=== PATIENT | female | born 1980 | race Two or more races ===

== ENCOUNTER 2019-08-22 20:27 | Emergency (ER) | payer BC ==
[~2019-08-22 20:27] MED LIST: LEVO1TAB8 PO
[2019-08-22 20:39] VITALS: BP 113/67
[2019-08-22] MEDS ORDERED: IBUP800T19 PO (20:49)
[2019-08-22] MEDS ORDERED: KETOROLAC 30 MG/ML VIAL. ONE (21:00)
[2019-08-22] MEDS ORDERED: KETOROLAC 60 MG/2 ML VIAL. IM ONE (21:00)
--- NOTE | 2019-08-22 21:23 | PHYS DOC ---
Past History Past Medical History: No Pertinent History Past Surgical History: No Surgical History Alcohol Use: None Drug Use: None Adult General Chief Complaint Chief Complaint: SORE THROAT HPI HPI Patient is a 39-year-old female presenting with sore throat she got penicillin and steroids from Dr. Durham today but didn't take the steroids yet because she was told it might cause insomnia pain is increasing took an Aleve earlier in the day but can only take one due to alleged sedative effect that she tells me about there is a sleep aid and with it she had negative strep test Review of Systems Review of Systems Constitutional: Denies fever or chills [] Eyes: Denies change in visual acuity, redness, or eye pain [] HENT: Denies nasal congestion or sore throat [] Respiratory: Denies cough or shortness of breath [] Cardiovascular: No additional information not addressed in HPI [] GI: Denies abdominal pain, nausea, vomiting, bloody stools or diarrhea [] : Denies dysuria or hematuria [] Musculoskeletal: Denies back pain or joint pain [] Integument: Denies rash or skin lesions [] Neurologic: Denies headache, focal weakness or sensory changes [] Endocrine: Denies polyuria or polydipsia [] All other systems were reviewed and found to be within normal limits, except as documented in this note. Current Medications Current Medications Current Medications Medications (Trade) Dose Ordered Sig/Getachew Start Time Stop Time Status Last Admin Dose Admin Ketorolac Tromethamine (Toradol 30mg Vial) 30 mg STK-MED ONCE 08/22/19 21:00 08/22/19 21:00 DC Ketorolac Tromethamine (Toradol Im) 30 mg 1X ONCE 08/22/19 21:00 08/22/19 21:04 DC Allergies Allergies Allergies Coded Allergies Type Severity Reaction Last Updated Verified No Known Drug Allergies 05/17/15 No Physical Exam Physical Exam Constitutional: Well developed, well nourished, no acute distress, non-toxic appearance. [] HENT: Normocephalic, atraumatic, bilateral external ears normal exudate are noted bilaterally the uvula is in the midline there is no asymmetric edema Eyes: PERRLA, EOMI, conjunctiva normal, no discharge. [] Neck: Normal range of motion, no tenderness, supple, no stridor. [] Lymphadenopathy is noted Abdomen: Bowel sounds normal, soft, no tenderness, no masses, no pulsatile masses. [] Skin: Warm, dry, no erythema, no rash. [] Back: No tenderness, no CVA tenderness. [] Extremities: No tenderness, no cyanosis, no clubbing, ROM intact, no edema. [] Neurologic: Alert and oriented X 3, normal motor function, normal sensory function, no focal deficits noted. [] Psychologic: Affect normal, judgement normal, mood normal. [] Current Patient Data Vital Signs Vital Signs Date Time Temp Pulse Resp B/P (MAP) Pulse Ox O2 Delivery O2 Flow Rate FiO2 08/22/19 20:39 99.3 106 18 94 Room Air None Temperature (Fahrenheit): * 99.3 degrees F (97.6-99.5) Patient Temperature * 99.3 degrees F (97.5-99.5) Temperature Source * Oral Blood Pressure Systolic * 113 mm Hg (100-140) Blood Pressure Diastolic * 67 mm Hg (60-100) Blood Pressure Mean * 82 mm Hg Pulse Rate * 106 beats per minute (60-90) H Respiratory Rate * 18 breaths per minute (12-24) Oxygen Delivery Method * Room Air Bedside Pulse Oximetry * 94 % Treatment Prior to Arrival * Yes EKG EKG [] Radiology/Procedures Radiology/Procedures [] Course & Med Decision Making Course & Med Decision Making Pertinent Labs and Imaging studies reviewed. (See chart for details) []Symptom management for presumed clinical strep pharyngitis was given Toradol and a prescription for Motrin is discussed patient voiced understanding no signs of peritonsillar abscess Dragon Disclaimer Dragon Disclaimer This electronic medical record was generated, in whole or in part, using a voice recognition dictation system. Departure Departure: Impression: Primary Impression: Sore throat Disposition: HOME, SELF-CARE Condition: STABLE Patient Instructions: Sore Throat, [id number] Scripts Ibuprofen (IBUPROFEN) 800 Mg Tablet 1 TAB PO TID PRN for PAIN, #15 TAB Prov: TOMMY DUQUE MD 08/22/19 TOMMY DUQUE MD Aug 22, 2019 21:23
== END 2019-08-22 21:02 | disposition home or self-care (01) ==
LOC: ER 20:27
DX: J02.9 Acute pharyngitis, unspecified (principal)
CPT/HCPCS: 99282

== ENCOUNTER 2020-05-12 23:03 | Emergency (ER) | payer BC ==
[~2020-05-12] VITALS: Ht 172.7 cm; Wt 75.9 kg
[~2020-05-12 23:03] MED LIST changes: +IBUP800T19 PO
[2020-05-12 23:10] VITALS: BP 118/73
[2020-05-12] MEDS ORDERED: CYCL-331 PO (23:34)
[2020-05-12] MEDS ORDERED: ACET500T33 PO (23:34)
--- NOTE | 2020-05-12 23:42 | PHYS DOC ---
Past History Past Medical History: No Pertinent History Past Surgical History: No Surgical History Alcohol Use: None Drug Use: None General Adult EDM: Chief Complaint: MULTIPLE COMPLAINTS HPI: HPI: "My neck is killing me.. it started about two... days ago..and it will not let up...".. "I was in Dr. Vazquez's office and they started me on some Flexeril but is not helping at all..." Patient is a 40 year old male who presents with above hx and complaints of torticollis after sleeping wrong 2 days ago. Since that time her neck pain has grown increasingly severe and spasms running in to the trapezius and down left arm. Patient denies any trauma. Patient denies any history of fever or chills. Patient denies previous issues of cardiac or musculoskeletal pain. Pain has obvious trapezius spasm. Does have sensation in left deltoid. Distal neurovascular is equal in both hands. Sensation is equal in both hands. Patient is right-hand dominant. No history immunosuppression. No history of IV drug use. Normally follows with Dr. Vazquez, Review of Systems: Review of Systems: Constitutional: Denies fever or chills Eyes: Denies change in visual acuity HENT: Denies nasal congestion or sore throat. Pains complains of severe neck spasm more on the left Respiratory: Denies cough or shortness of breath Cardiovascular: Denies chest pain or edema GI: Denies abdominal pain, nausea, vomiting, bloody stools or diarrhea : Denies dysuria Musculoskeletal: Denies back pain or joint pain Integument: Denies rash Neurologic: Denies headache, focal weakness or sensory changes Endocrine: Denies polyuria or polydipsia Lymphatic: Denies swollen glands Psychiatric: Denies depression or anxiety Heart Score: Risk Factors: Risk Factors: DM, Current or recent (<one month) smoker, HTN, HLP, family history of CAD, obesity. Risk Scores: Score 0 - 3: 2.5% MACE over next 6 weeks - Discharge Home Score 4 - 6: 20.3% MACE over next 6 weeks - Admit for Clinical Observation Score 7 - 10: 72.7% MACE over next 6 weeks - Early Invasive Strategies Family History: Family History: Noncontributory to presentation Current Medications: Current Meds: See nursing for home meds Allergies: Allergies: Allergies Coded Allergies Type Severity Reaction Last Updated Verified No Known Drug Allergies 7/11/20 No Physical Exam: PE: Constitutional: Well developed, well nourished, in acute distress, non-toxic appearance. [] HENT: Normocephalic, atraumatic, bilateral external ears normal, oropharynx moist, no oral exudates, nose normal. [] Eyes: PERRLA, EOMI, conjunctiva normal, no discharge. Glasses Neck: Admitted range of motion due to severe muscle spasms in neck and trapezius, no midline tenderness, trapezius on the left is extremely sensitive to palpation, , no stridor. [] No zoster rash appreciated. Cardiovascular:Heart rate regular rhythm, no murmur [] Lungs & Thorax: Bilateral breath sounds equal apex on auscultation [] Abdomen: Bowel sounds normal, soft, no tenderness, no masses, no pulsatile masses. [] Skin: Warm, dry, no erythema, no rash. [] Back: No tenderness, except in the trapezius area of muscle spasm, no CVA tenderness. [] Extremities: No tenderness, no cyanosis, no clubbing, ROM intact, no edema. [] Neurologic: Alert and oriented X 3, normal motor function, normal sensory function, no focal deficits noted. [] DTRs +2 brachial and patella. Patient is ambulatory Psychologic: Affect anxious, judgement normal, mood tearful Current Patient Data: Vital Signs: Vital Signs Date Time Temp Pulse Resp B/P (MAP) Pulse Ox O2 Delivery O2 Flow Rate FiO2 05/12/20 23:10 98.2 77 20 118/73 (88) 97 Room Air EKG: EKG: [] Radiology/Procedures: Radiology/Procedures: [][address] [address] IMAGING REPORT Signed PATIENT: PO PINZON YACCOUNT: [id number] : 1980 LOCATION: ER AGE: 40 SEX: F EXAM STATUS: REG ER ORD. PHYSICIAN: YANNICK MA MD REASON: Neck pain, neuropathy PROCEDURE: CT CERVICAL SPINE WO CONTRAST CT scan of the cervical spine without contrast 05/13/2020 Clinical history: Neck pain. Neuropathy. Technique: Unenhanced, contiguous, 0.625 mm axial sections were obtained through the cervical spine. 2 mm reconstructed axial, coronal and sagittal reconstructed images were obtained. One or more of the following individualized dose reduction techniques were utilized for this study: 1. Automated exposure control. 2. Adjustment of the mA and/or kV according to patient size. 3. Use of iterative reconstruction technique. Findings: Images from the study are degraded by patient motion. Sagittal and coronal reconstructed images demonstrate reversal the normal cervical lordosis. Degenerative changes consisting of vertebral endplate sclerosis and minimal to mild posterior vertebral body osteophyte formation are seen at the C5-6 disc space. No fracture or subluxation of the cervical vertebrae is seen. Degenerative changes are seen involving the uncovertebral and facet joints involving the lower cervical disc spaces. No definite area of significant central spinal canal or neural foraminal stenosis is seen. Impression: Degenerative changes are seen involving the lower cervical spine as discussed above. No acute osseous abnormality is seen. Electronically signed by: Adriel Hagen MD (05/13/2020 1:54 AM) [id number] DICTATED AND SIGNED BY: ADRIEL HAGEN MD DATE: 05/13/20 0154 CC: MIGUELITO VAZQUEZ MD; YANNICK MA MD ~ Course & Med Decision Making: Course & Med Decision Making Pertinent Labs and Imaging studies reviewed. (See chart for details) Use ice packs as directed. Take Flexeril as directed. For marked pain may take Vicoprofen. Do have findings of cervical degenerative joint disease. Follow- up with primary care. Consider follow-up with neurosurgery. Return if any concerns. [] Impression: 1. Cervical neuropathy 2. Cervical degenerative joint changes. 3. Torticollis Dragon Disclaimer: Dragon Disclaimer: This electronic medical record was generated, in whole or in part, using a voice recognition dictation system. Departure Departure: Disposition: 01 HOME/RESIDENCE PRIOR TO ADM Condition: STABLE Referrals: MIGUELITO VAZQUEZ MD (PCP) Scripts Hydrocodone/Ibuprofen (HYDROCODONE-IBUPROFEN 7.5-200 ) 1 Each Tablet 1 TAB PO PRN Q6HRS PRN for PAIN, #30 TAB 0 Refills Prov: YANNICK MA MD 05/12/20 Justification of Admission: Justification of Admission: Justification of Admission Dx: N/A Dragon Disclaimer This chart was dictated in whole or in part using Voice Recognition software in a busy, high-work load, and often noisy Emergency Department environment. It may contain unintended and wholly unrecognized errors or omissions. YANNICK MA MD May 12, 2020 23:42
[2020-05-12] MEDS ORDERED: MORPHINE SULFATE 10 MG/ML SYRINGE. SQ ONE (23:45)
[2020-05-12] MEDS ORDERED: ORPHENADRINE CITRATE 60 MG/2 ML VIAL. IM ONE (23:45)
[2020-05-12] MEDS ORDERED: methylPREDNISolone ACETATE 40 MG/ML VIAL. IM ONE (23:45)
[2020-05-12] MEDS ORDERED: KETOROLAC 60 MG/2 ML VIAL. IM ONE (23:45)
[2020-05-12] MEDS ORDERED: HYDR-1179 PO (23:47)
[2020-05-13] MEDS ORDERED: ONDANSETRON ODT 4 MG TAB.RAPDIS ONE (00:08)
[2020-05-13] MEDS ORDERED: ONDANSETRON ODT 4 MG TAB.RAPDIS PO ONE (00:15)
[2020-05-13] MEDS ORDERED: diphenhydrAMINE 50 MG/ML VIAL IVP ONE (01:30)
[2020-05-13] MEDS ORDERED: PROCHLORPERAZINE 10 MG/2 ML VIAL. IM ONE (01:30)
[2020-05-13] MEDS ORDERED: diphenhydrAMINE HCL 25 MG CAPSULE PO ONE (01:45)
--- NOTE | 2020-05-13 01:57 | RAD ---
CT scan of the cervical spine without contrast 05/13/2020 Clinical history: Neck pain. Neuropathy. Technique: Unenhanced, contiguous, 0.625 mm axial sections were obtained through the cervical spine. 2 mm reconstructed axial, coronal and sagittal reconstructed images were obtained. One or more of the following individualized dose reduction techniques were utilized for this study: 1. Automated exposure control. 2. Adjustment of the mA and/or kV according to patient size. 3. Use of iterative reconstruction technique. Findings: Images from the study are degraded by patient motion. Sagittal and coronal reconstructed images demonstrate reversal the normal cervical lordosis. Degenerative changes consisting of vertebral endplate sclerosis and minimal to mild posterior vertebral body osteophyte formation are seen at the C5-6 disc space. No fracture or subluxation of the cervical vertebrae is seen. Degenerative changes are seen involving the uncovertebral and facet joints involving the lower cervical disc spaces. No definite area of significant central spinal canal or neural foraminal stenosis is seen. Impression: Degenerative changes are seen involving the lower cervical spine as discussed above. No acute osseous abnormality is seen. Electronically signed by: Adriel Hagen MD (05/13/2020 1:54 AM) [id number]
== END 2020-05-13 02:33 | disposition home or self-care (01) ==
LOC: ER 23:03
DX: G54.2 Cervical root disorders, not elsewhere classified (principal); M43.6 Torticollis; M47.892 Other spondylosis, cervical region
CPT/HCPCS: 72125; 96372; 99284; J0780; J1030; J1885; J2270; J2360; Q0162; Q0163

== ENCOUNTER 2020-05-21 13:07 | Emergency (ER) | payer BC ==
[~2020-05-21] VITALS: Ht 172.7 cm; Wt 78.2 kg
[~2020-05-21 13:07] MED LIST changes: +ACET500T33 PO; +CYCL-331 PO; +HYDR-1179 PO
[2020-05-21] MEDS ORDERED: KETOROLAC 15 MG/ML VIAL. IVP ONE (13:45)
[2020-05-21] MEDS ORDERED: IV NORMAL SALINE 1,000ML 1,000 ML IV ONE (13:45)
[2020-05-21] MEDS ORDERED: DEXAMETHASONE SOD PHOS 10 MG/ML VIAL. IV ONE (13:45)
[2020-05-21] MEDS ORDERED: ASPIRIN 325 MG TABLET PO ONE (13:45)
[2020-05-21] MEDS ORDERED: ORPHENADRINE CITRATE 60 MG/2 ML VIAL. IV ONE (13:45)
[2020-05-21] MEDS ORDERED: KETOROLAC 15 MG/ML VIAL. ONE (13:47)
[2020-05-21] MEDS ORDERED: ASPIRIN 325 MG TABLET ONE (13:47)
--- NOTE | 2020-05-21 14:11 | EKG ---
[address] [address] Test Date: 2020-05-21 Test Time: 14:02:40 Pat Name: PO PINZON Department: Room: Gender: F Post Office Clerk: : 1980 Requested By: HEIDE SAUCEDO Order Number: [id number] Reading MD: Measurements Intervals [place] Rate: 71 P: 59 [place]: 180 QRS: 44 QRSD: 82 T: 47 QT: 400 QTc: 435 Interpretive Statements SINUS RHYTHM NORMAL ECG RI6.02 No previous ECG available for comparison
[2020-05-21 14:23] LABS: BASO % 1 % (0-3); EOS # 0.1 x10^3/uL (0.0-0.7); EOS % 1 % (0-3); HEMATOCRIT 37.6 % (36.0-47.0); HEMOGLOBIN 12.3 g/dL (12.0-15.5); LYMPH # 1.1 x10^3/uL (1.0-4.8); LYMPH % 15 % (24-48); MEAN CORPUSCULAR HEMOGLOBIN 26 pg (25-35); MEAN CORPUSCULAR HGB CONC 33 g/dL (31-37); MEAN CORPUSCULAR VOLUME 80 fL (79-100); MONO # 0.6 x10^3/uL (0.0-1.1); MONO % 9 % (0-9); NEUT # 5.7 x10^3uL (1.8-7.7); NEUT % 75 % (31-73); PLATELET COUNT 236 x10^3/uL (140-400); RED BLOOD COUNT 4.71 x10^6/uL (3.50-5.40); WHITE BLOOD COUNT 7.6 x10^3/uL (4.0-11.0)
[2020-05-21 14:29] LABS: CALCIUM 8.8 mg/dL (8.5-10.1); CREATININE 0.8 mg/dL (0.6-1.0); POTASSIUM 3.4 mmol/L (3.5-5.1); PREG TEST PT QUAL NEGATIVE (NEG)
--- NOTE | 2020-05-21 14:29 | RAD ---
CHEST PA LATERAL History: Reason: chest pain / Spl. Instructions: / History: Comparison: None. Findings: Frontal and lateral views of the chest were obtained. The cardiomediastinal silhouette is normal. Pulmonary vasculature is normal. The lungs are clear. No pleural effusion or pneumothorax is seen. There is no acute bone abnormality. IMPRESSION: No acute cardiopulmonary process. Electronically signed by: Zia Omer MD (05/21/2020 2:26 PM) [facility]
--- NOTE | 2020-05-21 14:35 | PHYS DOC ---
Past History Past Medical History: No Pertinent History Past Surgical History: No Surgical History Smoking: Non-smoker Alcohol Use: None Drug Use: None General Adult EDM: Chief Complaint: CHEST PAIN HPI: HPI: 40 year old female presents with report of chest pain with associated shortness of breath and left neck pain with radiation down left arm and tingling to left hand. Reports has had intermittent episodes x 2 weeks for which patient was originally seen in ED for same 2 weeks ago. Denies trauma. Denies fever/chills. Denies diaphoresis or nausea. Denies leg swelling or calf tenderness. Denies pleuritic pain. No cardiac risk factors. No history or family history of DVT/PE. Reports feels anxious. Review of Systems: Review of Systems: Constitutional: Denies fever or chills Eyes: Denies change in visual acuity, redness, or eye pain HENT: Denies nasal congestion or sore throat Respiratory: Denies cough; reports shortness of breath Cardiovascular: Reports chest pain and palpitations GI: Denies abdominal pain, nausea, vomiting, or diarrhea : Denies dysuria or hematuria Musculoskeletal: Reports neck and upper back pain and left arm Integument: Denies rash or skin lesions Neurologic: Denies headache; reports numbness to left hand Complete systems were reviewed and found to be within normal limits, except as documented in this note. Heart Score: HEART Score for Chest Pain: HEART Score for Chest Pain Response (Comments) Value History Moderately Suspicious 1 ECG Normal 0 Age < 45 0 Risk Factors No Risk Factors 0 Troponin < Normal Limit 0 Total 1 Risk Factors: Risk Factors: DM, Current or recent (<one month) smoker, HTN, HLP, family history of CAD, obesity. Risk Scores: Score 0 - 3: 2.5% MACE over next 6 weeks - Discharge Home Score 4 - 6: 20.3% MACE over next 6 weeks - Admit for Clinical Observation Score 7 - 10: 72.7% MACE over next 6 weeks - Early Invasive Strategies Current Medications: Current Meds: Current Medications Medications (Trade) Dose Ordered Sig/Getachew Start Time Stop Time Status Last Admin Dose Admin Aspirin (Payal Aspirin) 325 mg STK-MED ONCE 05/21/20 13:47 05/21/20 13:47 DC Dexamethasone Sodium Phosphate (Decadron) 10 mg 1X ONCE 05/21/20 13:45 05/21/20 13:48 DC 05/21/20 14:00 10 MG Ketorolac Tromethamine (Toradol 15mg Vial) 15 mg STK-MED ONCE 05/21/20 13:47 05/21/20 13:48 DC Orphenadrine Citrate (Norflex) 60 mg 1X ONCE 05/21/20 13:45 05/21/20 13:48 DC 05/21/20 13:58 60 MG Sodium Chloride 1,000 ml @ 1,000 mls/hr 1X ONCE 05/21/20 13:45 05/21/20 14:44 05/21/20 13:57 1,000 MLS/HR Allergies: Allergies: Allergies Coded Allergies Type Severity Reaction Last Updated Verified No Known Drug Allergies 05/21/20 No Physical Exam: PE: Constitutional: Well developed, well nourished,anxious, non-toxic appearance HENT: Normocephalic, atraumatic Eyes: Conjunctiva normal, no discharge Neck: Normal range of motion, no midline tenderness, tenderness to left paraspinal region, supple, no meningeal signs Lungs & Thorax: Equal chest rise and fall, no respiratory distress Abdomen: Soft, no tenderness Skin: Warm, dry, no erythema, no rash Back: No tenderness, no CVA tenderness Extremities: No calf tenderness, ROM intact, no edema Neurologic: Alert and oriented X 3, no focal deficits noted Psychologic: Affect anxious, judgement normal Current Patient Data: Labs: Laboratory Tests Test 05/21/20 13:52 White Blood Count 7.6 x10^3/uL (4.0-11.0) Red Blood Count 4.71 x10^6/uL (3.50-5.40) Hemoglobin 12.3 g/dL (12.0-15.5) Hematocrit 37.6 % (36.0-47.0) Mean Corpuscular Volume 80 fL (79-100) Mean Corpuscular Hemoglobin 26 pg (25-35) Mean Corpuscular Hemoglobin Concent 33 g/dL (31-37) Red Cell Distribution Width 16.0 % (11.5-14.5) H Platelet Count 236 x10^3/uL (140-400) Neutrophils (%) (Auto) 75 % (31-73) H Lymphocytes (%) (Auto) 15 % (24-48) L Monocytes (%) (Auto) 9 % (0-9) Eosinophils (%) (Auto) 1 % (0-3) Basophils (%) (Auto) 1 % (0-3) Neutrophils # (Auto) 5.7 x10^3uL (1.8-7.7) Lymphocytes # (Auto) 1.1 x10^3/uL (1.0-4.8) Monocytes # (Auto) 0.6 x10^3/uL (0.0-1.1) Eosinophils # (Auto) 0.1 x10^3/uL (0.0-0.7) Basophils # (Auto) 0.0 x10^3/uL (0.0-0.2) Sodium Level 140 mmol/L (136-145) Potassium Level 3.4 mmol/L (3.5-5.1) L Chloride Level 102 mmol/L (98-107) Carbon Dioxide Level 31 mmol/L (21-32) Anion Gap 7 (6-14) Blood Urea Nitrogen 12 mg/dL (7-20) Creatinine 0.8 mg/dL (0.6-1.0) Estimated GFR (Cockcroft-Gault) 79.0 BUN/Creatinine Ratio 15 (6-20) Glucose Level 76 mg/dL (70-99) Calcium Level 8.8 mg/dL (8.5-10.1) Magnesium Level Pending Total Bilirubin Pending Aspartate Amino Transferase (AST) Pending Alanine Aminotransferase (ALT) Pending Alkaline Phosphatase Pending Creatine Kinase Pending Creatine Kinase MB (Mass) Pending Creatine Kinase MB Relative Index Pending LD-Wze-E-Type Natriuretic Peptide Pending Total Protein Pending Albumin Pending Albumin/Globulin Ratio Pending Lipase Pending Serum Test, Qualitative Negative (NEG) EKG: EKG: @1402 NSR at 71bpm, NO ST elevation, QRS 82ms, QT/QTc 400/435ms Radiology/Procedures: Radiology/Procedures: PROCEDURE: CHEST PA & LATERAL CHEST PA LATERAL History: Reason: chest pain / Spl. Instructions: / History: Comparison: None. Findings: Frontal and lateral views of the chest were obtained. The cardiomediastinal silhouette is normal. Pulmonary vasculature is normal. The lungs are clear. No pleural effusion or pneumothorax is seen. There is no acute bone abnormality. IMPRESSION: No acute cardiopulmonary process. Electronically signed by: Zia Omer MD (05/21/2020 2:26 PM) [facility] Course & Med Decision Making: Course & Med Decision Making Pertinent Labs and Imaging studies reviewed. (See chart for details) Patient presents with atypical chest pain. hx of recent ED visit for similar 2 weeks ago. Low cardiac risk factors. HPI and physical exam more consistent for cervical radiculopathy and anxiety. EKG stable. Labs obtained and posted to chart. Troponin WNL. CXR stable. HEART score 1. PERC negative. Patient stable for discharge home with outpatient follow-up with PCP. Discussed findings and plan with patient, who acknowledges understanding and agreement. Dragon Disclaimer: Dragon Disclaimer: This electronic medical record was generated, in whole or in part, using a voice recognition dictation system. Departure Departure: Impression: Primary Impression: Atypical chest pain Additional Impressions: Cervical radiculopathy Anxiety Hypokalemia Disposition: HOME/RESIDENCE PRIOR TO ADM Condition: STABLE Referrals: MIGUELITO VAZQUEZ MD (PCP) Patient Instructions: Anxiety and Panic Attacks, [id number], Cervical Radiculopathy, Gabx-bi-Nrgi, Chest Pain (Nonspecific), Sskf-tu-[id number], Hypokalemia, Potassium Content of Foods Additional Instructions: Call Dr. Fabiano Duran (pain management) [facility] physician offices [phone]. Scripts Diazepam (VALIUM) 2 Mg Tablet 2 MG PO TID PRN for SEE COMMENTS, #14 TAB Take for anxiety and/or muscle pain Prov: HEIDE SAUCEDO DO 05/21/20 Prednisone (PREDNISONE) 20 Mg Tablet 2 TAB PO DAILY for Cervical Radiculopathy, #8 TAB Start this prescription tomorrow, Thursday05/22/20 Prov: HEIDE SAUCEDO DO 05/21/20 Justification of Admission: Justification of Admission: Justification of Admission Dx: N/A PERC Rule for PE PERC Rule for PE Response (Comments) Value Age > 50: No 0 HR > 100: No 0 Sa02 on room air <95%: No 0 Unilateral leg swelling: No 0 Hemoptysis: No 0 Recent surgery or trauma: No 0 Prior PE or DVT: No 0 Hormone use: No 0 Total 0 HEIDE SAUCEDO DO May 21, 2020 14:35
[2020-05-21 14:47] LABS: ALBUMIN 3.7 g/dL (3.4-5.0); ALBUMIN/GLOBULIN RATIO 0.9 (1.0-1.7); MAGNESIUM 2.1 mg/dL (1.8-2.4); TOTAL BILIRUBIN 0.4 mg/dL (0.2-1.0); TOTAL PROTEIN 7.9 g/dL (6.4-8.2)
[2020-05-21] MEDS ORDERED: PRED20TA PO (14:59)
[2020-05-21] MEDS ORDERED: DIAZ2TAB PO (14:59)
[2020-05-21] MEDS ORDERED: POTASSIUM CHLORIDE 20 MEQ TABLET.ER. PO ONE (15:00)
[2020-05-21 15:15] VITALS: BP 123/69
== END 2020-05-21 15:15 | disposition home or self-care (01) ==
LOC: ER 13:07
DX: R07.89 Other chest pain (principal); M54.12 Radiculopathy, cervical region; F41.9 Anxiety disorder, unspecified; E87.6 Hypokalemia; M79.602 Pain in left arm; R20.0 Anesthesia of skin; Z79.899 Other long term (current) drug therapy
CPT/HCPCS: 36415; 71046; 80053; 82553; 83690; 83735; 83880; 84484; 84703; 85025; 85610; 85730; 93005; 96374; 96375; 99285; J1100; J1885; J2360; J7030